=== PATIENT | female | born 1985 | race African-American/Black ===

== ENCOUNTER 2018-12-12 15:55 | Emergency (ER) | payer MEDICAID ==
[~2018-12-12] VITALS: Ht 160 cm; Wt 91.0 kg
[2018-12-12] MEDS: DEXAMETHASONE 10 MG/ML VIAL IM ONE (18:51)
[2018-12-12] MEDS: DIPHENHYDRAMINE 25MG CAPSULE PO ONE (18:52)
[2018-12-12 20:54] VITALS: BP 125/93
== END 2018-12-12 20:56 | disposition home or self-care (01) ==
LOC: ER 15:55
DX: R22.1 Localized swelling, mass and lump, neck (principal); R06.02 Shortness of breath
CPT/HCPCS: 71046; 81025; 93005; 96372; 99283; J1100; Q0163

== ENCOUNTER 2018-12-21 04:45 | Emergency (ER) | payer MEDICAID ==
[~2018-12-21] VITALS: Ht 160 cm; Wt 91.0 kg
[2018-12-21] MEDS ORDERED: ALBUTEROL (0.083%) 2.5MG/3ML NEB HHN STA (06:43)
[2018-12-21] MEDS ORDERED: SODIUM CHLORIDE 0.9% 1,000 ML IV ONE (06:43)
[2018-12-21] MEDS ORDERED: IPRATROPIUM BROMIDE (0.02%) 0.5MG/2.5ML NEB HHN STA (06:43)
[2018-12-21] MEDS ORDERED: KETOROLAC 30MG/ML VIAL IV ONE (07:00)
[2018-12-21 07:13] LABS: BASOPHILS % 0.4 % (0.0-2.0); EOSINOPHILS % 0.1 % (0.0-5.0); HEMATOCRIT. 37.8 % (36.0-48.0); HEMOGLOBIN. 12.2 g/dL (12.0-16.0); LYMPHOCYTES % 35.8 % (20.0-50.0); MEAN CORPUSCULAR HEMOGLOBIN 26.6 pg (28.0-32.0); MEAN CORPUSCULAR VOLUME 82.5 fL (81.0-99.0); MONOCYTES % 7.4 % (2.0-8.0); NEUTROPHILS % 56.3 % (40.0-76.0); PLATELET 360 x1000/uL (130-400); RED BLOOD CELL COUNT 4.58 mill/uL (4.2-5.4); RED CELL DISTRIBUTION WIDTH 13.4 % (11.6-14.6)
[2018-12-21 07:17] LABS: CHLORIDE 105 mEq/L (98-107)
[2018-12-21 07:32] LABS: HCG SCREEN NEGATIVE
[2018-12-21 10:15] VITALS: BP 105/56
[2018-12-21] MEDS ORDERED: IOHEXOL-300 100 ML BOTTLE ONE (11:01)
== END 2018-12-21 10:17 | disposition home or self-care (01) ==
LOC: ER 04:45
DX: R07.89 Other chest pain (principal); J02.9 Acute pharyngitis, unspecified; J06.9 Acute upper respiratory infection, unspecified
CPT/HCPCS: 36415; 70491; 71045; 80053; 81025; 83880; 84484; 84703; 85025; 87070; 87430; 93005; 94640; 96374; 99284; J1885; J7030; J7611; Q9967; Z7610

== ENCOUNTER 2019-01-26 21:37 | Emergency (ER) | payer MEDICAID ==
[~2019-01-26] VITALS: Ht 160 cm; Wt 94.0 kg
[2019-01-26 23:12] LABS: BASOPHILS % 0.5 % (0.0-2.0); EOSINOPHILS % 0.6 % (0.0-5.0); HEMATOCRIT. 38.5 % (36.0-48.0); HEMOGLOBIN. 12.6 g/dL (12.0-16.0); LYMPHOCYTES % 39.2 % (20.0-50.0); MEAN CORPUSCULAR HEMOGLOBIN 27.1 pg (28.0-32.0); MEAN CORPUSCULAR VOLUME 82.6 fL (81.0-99.0); MEAN PLATELET VOLUME 7.9 fl (7.4-10.4); MONOCYTES % 9.6 % (2.0-8.0); NEUTROPHILS % 50.1 % (40.0-76.0); PLATELET 338 x1000/uL (130-400); RED BLOOD CELL COUNT 4.65 mill/uL (4.2-5.4); RED CELL DISTRIBUTION WIDTH 13.3 % (11.6-14.6)
[2019-01-26 23:20] LABS: CHLORIDE 102 mEq/L (98-107)
[2019-01-26 23:25] LABS: HCG SCREEN NEGATIVE
[2019-01-27] MEDS ORDERED: IOHEXOL-300 100 ML BOTTLE ONE (00:59)
[2019-01-27 02:30] VITALS: BP 117/67
== END 2019-01-27 03:15 | disposition home or self-care (01) ==
LOC: ER 21:37
DX: R07.0 Pain in throat (principal); R07.9 Chest pain, unspecified; R06.02 Shortness of breath
CPT/HCPCS: 36415; 70491; 80048; 81025; 84703; 85025; 93005; 99284; Q9967

== ENCOUNTER 2019-02-16 23:55 | Emergency (ER) | payer MEDICAID ==
[~2019-02-16] VITALS: Ht 160 cm; Wt 94.0 kg
[2019-02-17 01:10] LABS: CHLORIDE 107 mEq/L (98-107)
[2019-02-17 01:11] LABS: BASOPHILS % 0.3 % (0.0-2.0); EOSINOPHILS % 1.7 % (0.0-5.0); HEMATOCRIT. 34.9 % (36.0-48.0); HEMOGLOBIN. 11.3 g/dL (12.0-16.0); LYMPHOCYTES % 46.3 % (20.0-50.0); MEAN CORPUSCULAR VOLUME 83.6 fL (81.0-99.0); MEAN PLATELET VOLUME 7.8 fl (7.4-10.4); MONOCYTES % 7.8 % (2.0-8.0); NEUTROPHILS % 43.9 % (40.0-76.0); PLATELET 359 x1000/uL (130-400); RED BLOOD CELL COUNT 4.17 mill/uL (4.2-5.4); RED CELL DISTRIBUTION WIDTH 13.4 % (11.6-14.6)
[2019-02-17 02:34] VITALS: BP 114/72
[2019-02-19 08:08] LABS: DRVVT LA 27.7 sec (0.0-47.0); LUPUS ANTICOAG INTERPRETATION Comment: (.); PTT-LA 42.8 sec (0.0-51.9)
== END 2019-02-17 02:35 | disposition home or self-care (01) ==
LOC: ER 23:55
DX: R06.00 Dyspnea, unspecified (principal)
CPT/HCPCS: 36415; 80048; 84443; 85613; 85732; 99283

== ENCOUNTER 2019-03-01 20:58 | Emergency (ER) | payer MEDICAID ==
[~2019-03-01] VITALS: Ht 160 cm; Wt 88.0 kg
[2019-03-01 23:21] LABS: BASOPHILS % 0.3 % (0.0-2.0); EOSINOPHILS % 1.4 % (0.0-5.0); HEMATOCRIT. 35.1 % (36.0-48.0); HEMOGLOBIN. 11.5 g/dL (12.0-16.0); LYMPHOCYTES % 51.8 % (20.0-50.0); MEAN CORPUSCULAR HEMOGLOBIN 27.3 pg (28.0-32.0); MEAN CORPUSCULAR VOLUME 83.5 fL (81.0-99.0); MEAN PLATELET VOLUME 7.9 fl (7.4-10.4); MONOCYTES % 7.9 % (2.0-8.0); NEUTROPHILS % 38.6 % (40.0-76.0); PLATELET 320 x1000/uL (130-400); RED BLOOD CELL COUNT 4.21 mill/uL (4.2-5.4); RED CELL DISTRIBUTION WIDTH 13.2 % (11.6-14.6)
[2019-03-01 23:26] LABS: CHLORIDE 109 mEq/L (98-107)
[2019-03-01] MEDS ORDERED: VISCOUS LIDOCAINE 2% 15 ML UDC PO ONE (23:30)
[2019-03-01] MEDS ORDERED: KETOROLAC 30MG/ML VIAL IV ONE (23:30)
[2019-03-01] MEDS ORDERED: MAGNESIUM/ALUMINUM HYDROXIDE/SIMETHICONE 30ML UDC PO ONE (23:30)
[2019-03-02 00:11] LABS: CLARITY URINE CLEAR (CLEAR); COLOR URINE YELLOW (YELLOW); KETONES URINE NEGATIVE (NEGATIVE); LEUKOCYTE ESTERASE URINE 3+ (NEGATIVE); NITRITE URINE NEGATIVE (NEGATIVE); OCCULT BLOOD URINE NEGATIVE (NEGATIVE); PROTEIN URINE NEGATIVE (NEGATIVE); SPECIFIC GRAVITY URINE 1.004 (1.005-1.030); UROBILINOGEN URINE 0.2 E.U./dL (0.2-1.0)
[2019-03-02 02:04] VITALS: BP 130/78
== END 2019-03-02 02:07 | disposition home or self-care (01) ==
LOC: ER 20:58
DX: J06.9 Acute upper respiratory infection, unspecified (principal); N39.0 Urinary tract infection, site not specified
CPT/HCPCS: 36415; 71045; 80053; 81003; 81025; 83880; 84484; 85025; 87086; 93005; 96374; 99284; J1885